=== PATIENT | male | born 1980 | race Caucasian/White ===

== ENCOUNTER 2024-11-12 17:40 | Emergency (ER) | payer SELFPAY ==
[2024-11-12 17:53] VITALS: BP 165/108
[2024-11-12 18:19] LABS: % Basophils 0.8 % (0-2); % Eosinophils 0.5 % (0-6); % Immature Granulocytes 0.2 % (0-0.5); % Monocytes 10.1 % (1.7-9.3); % Neutrophils 69.4 % (42.2-75.2); Absolute Basophils 0.1 10^3/uL (0-0.2); Absolute Lymphocytes 1.2 10^3/uL (1.2-3.4); Absolute Monocytes 0.6 10^3/uL (0.1-0.6); Absolute Neutrophils 4.3 10^3/uL (1.4-6.5); Hematocrit 43.6 % (39.0-52.0); Hemoglobin 15.3 g/dL (13.0-18.0); Mean Corp Hgb Conc. 35.1 g/dL (33.0-37.0); Mean Corpuscular Hgb 31.4 pg (27.0-31.0); Mean Corpuscular Volume 89.5 fL (80.0-94.0); Mean Platelet Volume 10.1 fL (7.4-10.4); Nucleated Red Blood Cells % 0 % (-); Platelet Count 204 10^3/uL (130-400); Red Blood Cell Count 4.87 10^6/uL (4.70-6.10); Red Cell Dist. Width 11.9 % (11.5-14.5); White Blood Cell Count 6.2 10^3/uL (4.8-10.8)
[2024-11-12 18:36] LABS: ALT (SGPT) 42 U/L (0-50); AST (SGOT) 27 U/L (17-59); Albumin 4.9 g/dl (3.5-5.0); Alkaline Phosphatase 107 U/L (38-126); Blood Urea Nitrogen 12 mg/dl (9-20); Carbon Dioxide 26 mmol/L (22-30); Chloride 101 mmol/L (98-107); Glucose 111 mg/dl (70-99); Potassium 3.7 mmol/L (3.5-5.1); Sodium 136 mmol/L (135-145); Total Bilirubin 0.9 mg/dl (0.2-1.3); Total Protein 7.7 g/dl (6.3-8.2); eGFR > 60.00
[2024-11-12 18:47] LABS: Troponin I < 0.012 ng/ml
[2024-11-12 19:06] LABS: TSH Reflex To Free T4 1.36 uIU/ml (0.47-4.68)
[2024-11-12 21:29] LABS: Troponin I < 0.012 ng/ml
[2024-11-12 22:21] VITALS: BP 148/74
--- NOTE | 2024-11-12 22:55 | ED.GENMED ---
History of Present Illness
General
Chief Complaint: Chest Pain
Source: patient and spouse
Exam Limitations: none
Time Seen by Provider: 11/12/24 22:04
Nursing documentation reviewed up to this point in time: agreed with
History of Present Illness
History of Present Illness:
This is a 44-year-old gentleman who admits to URI that began 3-1/2 weeks ago with cough, low-grade fever. Cough persisted for about 2-1/2 weeks but has since completely resolved over the past week. He assumed he had COVID but admits that he did
not test himself nor sought medical attention. He states URI symptoms felt similar to COVID URI he experienced over a year ago.
Generally exercises on a regular basis, jogs but has not been able to do so over the past 3-1/2 weeks and over the past week and a half despite attempting to resume his normal exercise regimen he has had difficulty doing so due to significant
fatigue, dyspnea on exertion. He has noted intermittent PVCs more so at nighttime, more so with lying on his left side. He states he has a heart rate monitor at home which has demonstrated these PVCs.
Over the past day or 2 he has noticed some squeezing in his chest and also some intermittent tingling in his fingers.
He denies dizziness nor lightheadedness. He has not had a fever at least not for the past 2-1/2 weeks. No leg pain or swelling.
No history of similar episodes in the past.
No recent travel.
No past medical history save for recently diagnosed with elevated cholesterol, recommended dietary changes. No significant family history, no family history of CAD nor thromboembolism.
He takes no medicines on a daily basis.
Past History
Past History
ED Past Medical History: Hypercholesterolemia
ED Past Surgical History: None
Social History
Tobacco: Non-smoker
Personal:
Living: with family
Employment: Employed
Family History
Family History: Other (Noncontributory. Denies history of thromboembolism); Negative Early CAD or CAD
Phy Exam
Physical Exam
Physical Exam:
GENERAL: 44-year-old gentleman appears his stated age. Thin build. Bright and alert, moderately anxious, easily communicative. is accompanying. Moderate hypertension noted initially, has improved upon recheck.
EYE: anicteric
NECK: Supple, nontender, no meningismus, no significant adenopathy.
ENT: Facemask in place.
CARDIAC: Regular rate and rhythm. no murmur. No rub.
LUNGS: Clear breath sounds bilaterally, no acute respiratory distress, no wheezes/rales/rhonchi
ABDOMEN: Soft, nondistended, without focal tenderness, normoactive BS.
NEUROLOGICAL: Alert and oriented x3, no focal neuro deficits. Gait is elder and steady.
SKIN: Warm and dry, normal color, skin intact. No rash.
MUSCULOSKELETAL: No C/C/E. peripheral pulses are full and equal b/l. No palpable tenderness.
PSYCH: Moderately anxious.
Scores
Heart Score for Chest Pain Patients
STEMI patient?: No
History: Slightly or Non-Suspicious
ECG: Normal
Age: </= 45 years
Risk Factors: No Risk Factors
Troponin: </= Normal Limit
Heart Score for Chest Pain Patients: 0
Heart Score Risk: 2.5% MACE over next 6 weeks
Course
Orders/Labs/Results
Orders:
Orders
11/12/24 17:41
Electrocardiogram (*1) Urgent
Reason for Study: Chest Pain
EKG- Treatment ONCE
11/12/24 18:02
Complete Blood Count/With Diff Urgent
Comprehensive Metabolic Panel Urgent
TSH Reflex To Free T4 Urgent
Troponin I Urgent
11/12/24 20:52
ECG [Electrocardiogram (*1)] Urgent
Reason for Study: Chest Pain
EKG- Treatment ONCE
11/12/24 20:57
Troponin I Urgent
11/12/24 22:21
D-Dimer Urgent
11/12/24 23:24
CR Chest - 2 Views Urgent
Comment:
Reason For Exam: CP, CORRALES
Abnormal Lab Results
11/12/24
18:02
MCH 31.4 H pg
(27.0-31.0)
Lymphocytes % 19.0 L %
(20.5-51.1)
Monocytes % 10.1 H %
(1.7-9.3)
Glucose 111 H mg/dl
(70-99)
11/12/24 18:02
11/12/24 18:02
Vital Signs
Initial and Last Documented VS:
Initial Vital Signs
Temp Pulse Resp BP Pulse Ox
98.9 F 127 18 165/108 99
11/12/24 17:53 11/12/24 17:53 11/12/24 17:53 11/12/24 17:53 11/12/24 17:53
Last Documented Vital Signs
Temp Pulse Resp BP Pulse Ox
98.2 F 102 22 148/74 98
11/12/24 22:21 11/12/24 22:21 11/12/24 22:21 11/12/24 22:21 11/12/24 22:21
MDM/Problems Addressed
Differential Diagnosis Includes:
Concern for arrhythmia, GERD, occult pneumonia, bronchitis, PE.
Patient has no significant risk factors for PE.
Thus far labs are unremarkable with negative troponin x 2.
Initial EKG shows mild sinus tachycardia otherwise unremarkable. Repeat EKG shows normal sinus rhythm/sinus arrhythmia without acute ST-T wave abnormalities. There is no evidence of arrhythmia.
Will check D-dimer and if elevated will plan for CT of the chest/PE study. If negative will check chest x-ray.
Overall well in appearance but moderate anxiety component noted.
*Radiology
Radiology exam reviewed: preliminary read by ED provider (Chest x-ray is unremarkable. Clear lung fair. Normal heart size.)
*Pulse Oximetry
Patient hypoxic: no
*EKG
Interpreted by ED Provider?: Yes
Interpretation: abnormal
Comparison EKG: no comparison EKG present
Rate: tachycardiac
Rhythm: sinus
[place]: normal axis
Interval: normal interval
QRS Pattern: normal QRS
Ischemia: no ischemia
*Critical Care Note
Total Time (30-74mins, 75-104mins- exclusive of procedures): Not Applicable
Update Note
Update Note:
00:02
D-dimer within normal limits.
Chest x-ray is unremarkable.
Patient continues to appear well.
I suspect chest discomfort, dyspnea on exertion, palpitations are related to recent URI and recommend tincture of time, rest. Discussed importance of remaining well-hydrated on a daily basis. Get adequate rest each night. Avoid caffeine,
chocolate, alcohol.
Will refer to our chest pain hotline for follow-up.
Return precautions discussed.
ED Attending Note
-
Portions of this chart may have been created with voice recognition software.� Occasional wrong word or��sound alike� substitutions may have occurred due to the inherent limitations of voice recognition software.
Discharge Plan
Departure
Patient Disposition: Home (Routine Discharge)
Date of Disposition: 11/13/24
Time of Disposition: 00:04
Patient with high blood pressure during this ER visit?: Yes
Condition: Good
Discharge Problem:
Heart palpitations, Dyspnea on exertion, Nonspecific chest pain
Instructions: Chest Pain DCA Follow Up, Heart Palpitations
Referrals:
Derik Jack MD [Family Provider] - Call in 1-3 days for appt
Interventions
Interventions:
*Risk Screen - Suicide Last Done: 11/12/24 17:53
*General Assessment Last Done: 11/12/24 17:53
*Neglect/Abuse Screening Last Done: 11/12/24 17:53
ED- Fall Risk Assessment Last Done: 11/12/24 22:23
ED- Cardiac Assessment Last Done: 11/12/24 22:23
Discharge Date and Time
Print Language: MONEGASQUE
[2024-11-12 23:15] LABS: D-Dimer 0.43 ug/mlFEU (0.00-0.50)
[2024-11-13 00:12] VITALS: BP 145/84
== END 2024-11-13 00:13 | disposition home or self-care (01) ==
LOC: EMR 17:40
PROVIDERS: Emergency Medicine; Student in an Organized Health Care Education/Training Program; EMERGENCY PHYSICIAN Emergency Medicine; FAMILY PHYSICIAN Family Medicine
DX: R07.89 Other chest pain (principal); R00.2 Palpitations; R06.09 Other forms of dyspnea; R03.0 Elevated blood-pressure reading, without diagnosis of hypertension
CPT/HCPCS: 99285; 71046; 80053; 84443; 84484; 85025; 85379; 93005

== ENCOUNTER 2024-12-22 11:43 | Emergency (ER) | payer SELFPAY ==
[2024-12-22 11:52] VITALS: BP 149/104
[2024-12-22 12:10] LABS: % Basophils 0.9 % (0-2); % Eosinophils 0.4 % (0-6); % Immature Granulocytes 0.4 % (0-0.5); % Lymphocytes 17.6 % (20.5-51.1); % Monocytes 8.8 % (1.7-9.3); % Neutrophils 71.9 % (42.2-75.2); Absolute Basophils 0.1 10^3/uL (0-0.2); Absolute Monocytes 0.5 10^3/uL (0.1-0.6); Absolute Neutrophils 4.1 10^3/uL (1.4-6.5); Hematocrit 45.7 % (39.0-52.0); Hemoglobin 16.6 g/dL (13.0-18.0); Mean Corp Hgb Conc. 36.3 g/dL (33.0-37.0); Mean Corpuscular Hgb 32.2 pg (27.0-31.0); Mean Corpuscular Volume 88.6 fL (80.0-94.0); Nucleated Red Blood Cells % 0 % (-); Platelet Count 195 10^3/uL (130-400); Red Blood Cell Count 5.16 10^6/uL (4.70-6.10); Red Cell Dist. Width 11.7 % (11.5-14.5); White Blood Cell Count 5.7 10^3/uL (4.8-10.8)
[2024-12-22 12:33] LABS: Troponin I < 0.012 ng/ml
[2024-12-22 12:35] LABS: ALT (SGPT) 51 U/L (0-50); AST (SGOT) 36 U/L (17-59); Albumin 5.1 g/dl (3.5-5.0); Alkaline Phosphatase 95 U/L (38-126); Blood Urea Nitrogen 9 mg/dl (9-20); Calcium 10.2 mg/dl (8.4-10.2); Carbon Dioxide 28 mmol/L (22-30); Chloride 104 mmol/L (98-107); Glucose 110 mg/dl (70-99); Sodium 141 mmol/L (135-145); Total Bilirubin 1.2 mg/dl (0.2-1.3); Total Protein 7.8 g/dl (6.3-8.2); eGFR > 60.00
[2024-12-22 12:51] VITALS: BP 133/96
[2024-12-22 12:55] VITALS: BMI 21.2
[2024-12-22 13:42] VITALS: BP 134/90
[2024-12-22] MEDS: LOPRESSOR 5 MG IV (13:48)
[2024-12-22] MEDS: NSS 250 IV (13:48)
--- NOTE | 2024-12-22 15:37 | ED.GENMED ---
History of Present Illness
General
Chief Complaint: Heart Rate Problem
Source: patient
Exam Limitations: none
Time Seen by Provider: 12/22/24 13:18
Nursing documentation reviewed up to this point in time: agreed with
History of Present Illness
History of Present Illness:
Patient presents to ED secondary to recurrent chest palpitations with chest tightness, since this morning. Patient states that he has had number of similar symptoms, and was evaluated by his assistant manager of operations in [place] recently. During the office
visit, EKG obtained in the office revealed atrial fibrillation. At that time, treatment plan was discussed with his assistant manager of operations, including anticoagulation along with beta-jack. However, medications were deferred, secondary to patient's
hesitation to start anything new. As such, outpatient stress echocardiogram as well as echocardiogram were ordered by his assistant manager of operations. Denies dizziness or shortness of breath. Denies nausea or diaphoresis. At the time of evaluation ED, patient
denies any symptoms.
Past History
Past History
ED Past Medical History: Hypercholesterolemia
ED Past Surgical History: None
Social History
Tobacco: Non-smoker
Personal:
Living: with family
Employment: Employed
Family History
Family History: Other (Noncontributory. Denies history of thromboembolism); Negative Early CAD or CAD
Review of Systems
Review of Systems
Allergies reviewed?: Yes
All Other Systems: ROS reviewed and negative except as documented in HPI and ROS
Constitutional: Reports no symptoms
EENT: Reports no symptoms
Respiratory: Reports no symptoms
Cardiac: Reports chest pain and palpitations
ABD/GI: Reports no symptoms
Musculoskeletal: Reports no symptoms
Skin: Reports no symptoms
Neurological: Reports no symptoms
Phy Exam
Physical Exam
Physical Exam:
Physical Exam
General: no apparent distress, not acutely ill. afebrile
Head: nc/at. eomi
Neck: supple. normal range of motion.
Heart: tachycardic, no murmur. equal radial pulses.
Lungs: no acute respiratory distress. clear bilaterally
Abdomen: normal bowel sounds. not tender.
Neuro: alert and oriented x 3. no focal neurological deficits
Skin: no rash
Psychiatric: well kept. interactive and cooperative
Extremities: no edema. no calf tenderness.
Course
Orders/Labs/Results
Orders:
Orders
12/22/24 11:45
EKG [Electrocardiogram (*1)] Urgent
Reason for Study: Palpitations
EKG- Treatment ONCE
12/22/24 11:59
Complete Blood Count/With Diff Urgent
Comprehensive Metabolic Panel Urgent
Magnesium Urgent
Comment: ADD ON
TSH Reflex To Free T4 Urgent
Comment: ADD ON
Troponin I Urgent
12/22/24 13:32
0.9% Sodium Chloride 250 ml [Nss] 250 ml IV BOLUS
Metoprolol [Lopressor] 5 mg IV NOW STA
12/22/24 14:08
EKG [Electrocardiogram (*1)] Urgent
Reason for Study: Tachycardia
EKG- Treatment ONCE
12/22/24 15:44
Add On- LAB Urgent
Tests Added?: magnesium, TSH to reflex Free T4
12/22/24 16:25
D-Dimer Urgent
Abnormal Lab Results
12/22/24
11:59
MCH 32.2 H pg
(27.0-31.0)
Absolute Lymphs (auto) 1.0 L 10^3/uL
(1.2-3.4)
Lymphocytes % 17.6 L %
(20.5-51.1)
Glucose 110 H mg/dl
(70-99)
ALT 51 H U/L
(0-50)
Albumin 5.1 H g/dl
(3.5-5.0)
12/22/24 11:59
12/22/24 11:59
Vital Signs
Initial and Last Documented VS:
Initial Vital Signs
Temp Pulse Resp BP Pulse Ox
98.2 F 114 16 149/104 98
12/22/24 11:52 12/22/24 11:52 12/22/24 11:52 12/22/24 11:52 12/22/24 11:52
Last Documented Vital Signs
Temp Pulse Resp BP Pulse Ox
98.2 F 89 16 128/93 96
12/22/24 11:52 12/22/24 17:00 12/22/24 17:00 12/22/24 16:00 12/22/24 17:00
MDM/Problems Addressed
MDM/Problems Addressed:
Initial rhythm revealed sinus tachycardia, without any acute abnormalities. Patient given 5 mg Lopressor IV with decreased heart rate. At that time, repeat EKG performed, which reveals normal sinus without any additional abnormal findings.
Discussed with covering assistant manager of operations for his primary assistant manager of operations, Dr. Johnson. Agrees with plan to discharge patient home on Toprol 25 mg XL, along with outpatient evaluation with his primary assistant manager of operations. Does not recommend patient to be started on
anticoagulation at this time.
*Critical Care Note
Total Time (30-74mins, 75-104mins- exclusive of procedures): Not Applicable
ED Attending Note
-
Portions of this chart may have been created with voice recognition software.� Occasional wrong word or��sound alike� substitutions may have occurred due to the inherent limitations of voice recognition software.
Discharge Plan
Departure
Patient Disposition: Home (Routine Discharge)
Date of Disposition: 12/22/24
Time of Disposition: 16:50
Patient with high blood pressure during this ER visit?: Yes
Condition: Good
Discharge Problem:
Tachycardia
Instructions: Palpitations (DC)
Prescriptions:
New
metoprolol succinate [Toprol XL] 25 mg tablet extended release 24 hr
25 mg PO DAILY Qty: 30 0RF
Referrals:
Derik Jack MD [Family Provider] -
Activity Restrictions/Additional Instructions:
As discussed, please follow-up with your assistant manager of operations for further evaluation and treatment. Your prescription has been sent electronically [facility] in [place], [place]
Interventions
Interventions:
*Risk Screen - Suicide Last Done: 12/22/24 11:52
*General Assessment Last Done: 12/22/24 12:55
*Neglect/Abuse Screening Last Done: 12/22/24 11:52
*ED- Fall Risk Assessment Last Done: 12/22/24 12:55
*ED COVID-19 Vaccine History Last Done: 12/22/24 12:55
*Nursing Disposition Last Done: 12/22/24 17:07
ED- Cardiac Assessment Last Done: 12/22/24 12:55
ED- Pulmonary Assessment Last Done: 12/22/24 12:55
Discharge Date and Time
Discharge Date/Time: 12/22/24 17:08
Print Language: SPANISH
[2024-12-22 15:45] VITALS: BP 120/102
[2024-12-22 16:00] VITALS: BP 128/93
[2024-12-22 16:44] LABS: D-Dimer < 0.27 ug/mlFEU (0.00-0.50)
[2024-12-22 16:54] LABS: TSH Reflex To Free T4 0.84 uIU/ml (0.47-4.68)
== END 2024-12-22 17:08 | disposition home or self-care (01) ==
LOC: EMR 11:43
PROVIDERS: EMERGENCY PHYSICIAN Emergency Medicine; FAMILY PHYSICIAN Family Medicine
DX: R00.0 Tachycardia, unspecified (principal); E78.00 Pure hypercholesterolemia, unspecified; I48.91 Unspecified atrial fibrillation
CPT/HCPCS: 96374; 99284; 80053; 83735; 84443; 84484; 85025; 85379; 93005